=== PATIENT | female | born 1945 | race American Indian/Alaskan Native ===

== ENCOUNTER 2016-11-08 12:18 | Emergency (ER) | payer MEDICARE ==
[2016-11-08 12:54] VITALS: BP 157/84
[2016-11-08 13:08] LABS: Basophils % (Auto) 0.6 % (0.0-1.8); Eosinophils % (Auto) 0.5 % (0.0-4.3); Hematocrit 28.5 % (30.3-42.9); Hemoglobin 8.8 gm/dl (10.1-14.3); Mean Corpuscular HGB Conc 31 % (30-34); Mean Corpuscular Hemoglobin 26 pg (28-32); Mean Corpuscular Volume 84 fl (79-97); Platelet Count 222 K/mm3 (140-440); Red Cell Distribution Width 19.3 % (13.2-15.2)
[2016-11-08 13:37] LABS: Anion Gap 20 mmol/L; BUN/Creatinine Ratio 17.64; Blood Urea Nitrogen 30 mg/dL (7-17); Calcium 8.8 mg/dL (8.4-10.2); Carbon Dioxide 19 mmol/L (22-30); Chloride 107.6 mmol/L (98-107); Glucose 99 mg/dL (65-100); Potassium 4.8 mmol/L (3.6-5.0); Sodium 142 mmol/L (137-145)
== END 2016-11-08 12:50 | disposition left against medical advice (07) ==
LOC: ED 12:18
DX: R06.02 Shortness of breath (principal); R07.9 Chest pain, unspecified; Z53.21 Procedure and treatment not carried out due to patient leaving prior to being seen by health care provider
CPT/HCPCS: 36415; 80048; 83880; 84484; 85025; 93005; 93010